=== PATIENT | male | born 1980 | race Hispanic/Latino ===

== ENCOUNTER 2018-06-03 23:39 | Emergency (ER) | payer MEDICAID ==
[2018-06-03 23:54] VITALS: PULSE 80; TEMP 98.4; O2SAT 98
[2018-06-04 01:08] VITALS: RESP 20
--- NOTE | 2018-06-04 01:24 | C.PDOC ---
History Of Present Illness 37 year old male presents to the ED c/o pain and swelling to his left ankle. Patient states that yesterday while playing basketball he twisted his ankle. Patient has been able to ambulate with some discomfort. Patient denies LOC, head injury, weakness, numbness. Time Seen by Provider: 06/03/18 23:56 Chief Complaint (Nursing): Lower Extremity Problem/Injury History Per: Patient History/Exam Limitations: no limitations Onset/Duration Of Symptoms: Days Current Symptoms Are (Timing): Still Present Recent travel outside of the [place]: No Additional History Per: Patient - Ankle/Foot Description Of Injury: Twisted Past Medical History Reviewed: Historical Data, Nursing Documentation, Vital Signs Vital Signs: Last Vital Signs Temp 98.4 F 06/03/18 23:50 Pulse 80 06/03/18 23:50 Resp 20 06/04/18 01:07 BP Pulse Ox 98 06/04/18 01:25 - Medical History PMH: No Chronic Diseases Surgical History: No Surg Hx Family History: States: Unknown Family Hx - Social History Hx Alcohol Use: No Hx Substance Use: No - Immunization History Hx Tetanus Toxoid Vaccination: No Hx Influenza Vaccination: No Hx Pneumococcal Vaccination: No Review Of Systems Constitutional: Negative for: Fever, Chills Musculoskeletal: Positive for: Foot Pain. Negative for: Back Pain, Leg Pain Neurological: Negative for: Weakness, Numbness, Headache, Dizziness Physical Exam - Physical Exam Appears: Non-toxic, No Acute Distress Skin: Normal Color, Warm, Dry Head: Atraumatic, Normacephalic Eye(s): bilateral: Normal Inspection Extremity: Normal ROM, Tenderness (left lateral malleolus), Capillary Refill (< 2 seconds), No Swelling Pulses: Left Dorsalis Pedis: Normal, Right Dorsalis Pedis: Normal Neurological/Psych: Oriented x3, Normal Speech, Normal Motor, Normal Sensation Gait: Steady ED Course And Treatment O2 Sat by Pulse Oximetry: 98 (ON RA) Pulse Ox Interpretation: Normal - Other Rad Left ankle X-Ray X-Ray: Interpreted by Me, Viewed By Me Interpretation: no fracture or dislocation seen Progress Note: Plan: - Motrin 600 mg PO. - Left ankle X-Ray. - Obdulio wrap. On reassessment, patient is resting comfortably, and is in no acute distress. Patient was instructed to follow up with physician/clinic in 1-2 days for further evaluation. Disposition - Disposition Referrals: Podiatry Clinic [Outside] Disposition: HOME/ ROUTINE Disposition Time: 01:03 Condition: STABLE Additional Instructions: Please follow up with Podiatry as needed Leg elevation/ Apply ICE Return to ER if worse Prescriptions: Ibuprofen [Motrin] 600 mg PO Q6H #20 tab Instructions: Ankle Sprain (DC) Forms: [employer] (Lithuanian) - Clinical Impression Clinical Impression: Left ankle sprain - PA / [employer] / Resident Statement MD/DO has reviewed & agrees with the documentation as recorded. - Scribe Statement The provider has reviewed the documentation as recorded by the Scribe Shimon Varela All medical record entries made by the Scribe were at my direction and personally dictated by me. I have reviewed the chart and agree that the record accurately reflects my personal performance of the history, physical exam, medical decision making, and the department course for this patient. I have also personally directed, reviewed, and agree with the discharge instructions and disposition.
--- NOTE | 2018-06-04 10:35 | RAD ---
Date of service: 06/04/2018 PROCEDURE: Left Ankle Radiographs. HISTORY: PAIN, TWISTING INJ COMPARISON: None FINDINGS: BONES: Normal. No fracture. JOINTS: Normal. No osteoarthritis. Ankle mortise maintained. Talar dome intact SOFT TISSUES: Normal. OTHER FINDINGS: None. IMPRESSION: Normal left ankle radiographs.
== END 2018-06-04 01:07 | disposition home or self-care (01) ==
LOC: C.ER 23:39
DX: S93.402A Sprain of unspecified ligament of left ankle, initial encounter (principal); X50.9XXA Other and unspecified overexertion or strenuous movements or postures, initial encounter; Y93.67 Activity, basketball